=== PATIENT | male | born 1955 | race Caucasian/White ===

== ENCOUNTER 2016-09-24 23:26 | Emergency (ER) | payer OTHER ==
[~2016-09-24] VITALS: Ht 175.3 cm; Wt 67.9 kg
[~2016-09-24 23:26] MED LIST: ACET-1600 PO; AMOX-291 PO; ESOM40CA PO; HYDR-3144 PO; HYDROCODONE/ACETA PO; IBUP800T PO; ONDA4TAB13 SL
[2016-09-25 02:56] VITALS: BP 94/61
== END 2016-09-25 02:58 | disposition home or self-care (01) ==
LOC: ED 09-25 01:47
DX: Z46.59 Encounter for fitting and adjustment of other gastrointestinal appliance and device (principal)
CPT/HCPCS: 43760; 74340

== ENCOUNTER 2019-07-23 06:13 | Day surgery (SDC) | payer MEDICARE ==
[~2019-07-23] VITALS: Ht 175.3 cm; Wt 73.8 kg
[~2019-07-23 06:13] MED LIST changes: -HYDR-3144 PO; +HYDR-3245 PO; +IBUP-1223 PO; -IBUP800T PO
[2019-07-23 06:54] VITALS: BP 96/62
[2019-07-23] MEDS ORDERED: SODIUM CHLORIDE 0.9% 1,000 ML IV SCH (06:56)
[2019-07-23] MEDS ORDERED: CEFAZOLIN PMX 1GM/50ML 50 ML IV ONE (07:00)
[2019-07-23] MEDS ORDERED: NALOXONE 1 MG/ML, 2ML ONE (08:19)
[2019-07-23] MEDS ORDERED: FLUMAZENIL 0.1 MG/1 ML, 5ML ONE (08:19)
[2019-07-23] MEDS ORDERED: FENTANYL PF 100 MCG/2ML ONE (08:19)
[2019-07-23] MEDS ORDERED: MIDAZOLAM 1 MG/ML, 5ML ONE (08:19)
[2019-07-23] MEDS ORDERED: LIDOCAINE 1%, 20ML ONE (08:35)
== END 2019-07-23 10:50 | disposition home or self-care (01) ==
LOC: OUT 06:13
PROVIDERS: ATTEND Pathology Hematology
DX: C09.9 Malignant neoplasm of tonsil, unspecified (principal); E03.9 Hypothyroidism, unspecified; G62.9 Polyneuropathy, unspecified; F17.210 Nicotine dependence, cigarettes, uncomplicated; Z79.890 Hormone replacement therapy; Z79.899 Other long term (current) drug therapy; Z90.49 Acquired absence of other specified parts of digestive tract; Z98.890 Other specified postprocedural states
CPT/HCPCS: 36561; 76937; 77001; 99156; 99157; C1788; J0690; J1642; J2250; J3010; J7030; J2310